=== PATIENT | female | born 1985 | race Caucasian/White ===

== ENCOUNTER 2016-12-20 09:49 | Inpatient (IN) | payer OTHER ==
[~2016-12-20] VITALS: Ht 160 cm; Wt 85.7 kg
[2016-12-20 13:07] LABS: HEMOGLOBIN 11.7 gm/dl (12.3-15.3); RED BLOOD COUNT 5.1 M/UL (4.00-5.10)
[2016-12-21 03:53] LABS: HEMOGLOBIN 10.6 gm/dl (12.3-15.3)
== END 2016-12-22 12:00 | disposition home or self-care (01) | DRG 775 ==
LOC: GENOP 09:49 → OB 12:24
PROVIDERS: ADMIT Obstetrics & Gynecology
PROC: 10E0XZZ Delivery of Products of Conception, External Approach (ICD-10-PCS; principal; 2016-12-20)
PROC: 0KQM0ZZ Repair Perineum Muscle, Open Approach (ICD-10-PCS; 2016-12-20)
PROC: 10907ZC Drainage of Amniotic Fluid, Therapeutic from Products of Conception, Via Natural or Artificial Opening (ICD-10-PCS; 2016-12-20)
DX: O60.23X0 Term delivery with preterm labor, third trimester, not applicable or unspecified (principal); O70.1 Second degree perineal laceration during delivery; O99.824 Streptococcus B carrier state complicating childbirth; O99.214 Obesity complicating childbirth; Z3A.38 38 weeks gestation of pregnancy; Z37.0 Single live birth; Z28.21 Immunization not carried out because of patient refusal
CPT/HCPCS: 36415; 81001; 82800; 83518; 85014; 85018; 85025; 85461; 86900; 86901; J2300; J2590; J3430; J7120

== ENCOUNTER → 2021-01-01 | Outpatient (CLI) | payer OTHER ==
[~2021-01-01] MED LIST: CLARITIN10 MG PO; FEOSOL325 MG PO; FLONASE 0.05% N16 GM; LANSOPRAZOLE30 MG PO; PEPCID20 MG PO; PRENATAL VITAM1 EAC8 PO; VITAMIN D 40400 UNIT PO
== END ==
LOC: KOH-I 13:54
DX: M25.572 Pain in left ankle and joints of left foot (principal)
CPT/HCPCS: 73610